=== PATIENT | male | born 1960 ===

== ENCOUNTER 2020-09-09 08:13 | Outpatient (CLI) | payer OTHER, SELFPAY | END 2020-09-09 08:14 | disposition home or self-care (01) | LOC: ANHCOVIDVC 08:13 | PROVIDERS: PCP Family Medicine | DX: Z23 Encounter for immunization (principal) | CPT/HCPCS: 0001A; 91300 ==

== ENCOUNTER 2020-09-30 08:26 | Outpatient (CLI) | payer OTHER, SELFPAY | END 2020-09-30 08:27 | disposition home or self-care (01) | LOC: ANHCOVIDVC 08:26 | PROVIDERS: PCP Family Medicine | DX: Z23 Encounter for immunization (principal) | CPT/HCPCS: 0002A; 91300 ==